=== PATIENT | male | born 1980 | race Two or more races ===

== ENCOUNTER 2017-01-15 10:30 | Emergency (ER) | payer SELFPAY ==
[~2017-01-15] VITALS: Ht 165.1 cm; Wt 63.5 kg
[2017-01-15 11:11] VITALS: BP 124/71
== END 2017-01-15 11:37 | disposition home or self-care (01) ==
LOC: ER 10:30
DX: R04.0 Epistaxis (principal); J32.1 Chronic frontal sinusitis

== ENCOUNTER 2017-01-17 16:18 | Emergency (ER) | payer MEDICAID, OTHER ==
[~2017-01-17] VITALS: Ht 165.1 cm; Wt 78.9 kg
[2017-01-17 18:30] VITALS: BP 122/49
== END 2017-01-17 20:06 | disposition home or self-care (01) ==
LOC: ER 16:21
DX: J01.10 Acute frontal sinusitis, unspecified (principal); R04.0 Epistaxis; Z86.711 Personal history of pulmonary embolism; Z86.73 Personal history of transient ischemic attack (TIA), and cerebral infarction without residual deficits
CPT/HCPCS: 70450